=== PATIENT | male | born 1990 | race Caucasian/White ===

== ENCOUNTER 2019-04-06 15:35 | Emergency (ER) | payer OTHER ==
--- NOTE | 2019-04-06 15:51 | ED Physician Documentation ---
History of Present Illness - Stated complaint Stated Complaint: L FINGER LAC - Chief complaint Chief Complaint: Laceration - Additonal information Additional information: This is a 28-year-old male who presents after lacerating his left middle finger with a boxcar weigher. He states that he slipped and he cut his finger. The bleeding is controlled. He does not know when his last tetanus shot was. No numbness or weakness. Review of Systems Constitutional: denies: Fever Skin: reports: Laceration (s) PD PAST MEDICAL HISTORY - Past Medical History Past Medical History: No - Allergies Allergies/Adverse Reactions: Allergies Allergy/AdvReac Type Severity Reaction Status Date / Time No Known Drug Allergies Allergy Verified 04/06/19 15:45 - Living Situation Living Arrangement: reports: At home - Family History Family history: reports: Non contributory PD ED PE NORMAL - Vitals Vital signs reviewed: Yes - General General: Alert and oriented X 3, No acute distress - Cardiac Cardiac: No murmur - Extremities Extremities: Other (2 cm laceration to the left middle finger distal lateral aspect. There is no active bleeding. Extensive subcutaneous tissue, there is no foreign body. No tendon or bone visible. Sensation is intact light touch over the entire finger around the wound, and flexion/extension are normal) - Neuro Neuro: Alert and oriented X 3 - Psych Psych: Normal mood, Normal affect Results - Vitals Vitals: Vital Signs - 24 hr 04/06/19 04/06/19 15:43 17:07 Temperature 36.6 C 36.5 C Heart Rate 78 76 Respiratory 16 16 Rate Blood Pressure 126/75 122/75 O2 Saturation 98 99 Oxygen O2 Source Room air Procedures - Laceration (location) Finger Length in cm: 2 Wound type: Linear Neurovascular status: Sensory intact, Motor intact, Vascular intact Tendon involvement: No: Tendon Injury Anesthesia: Lidocaine 1% Skin layer closure: Nylon, Interrupted, Sutures - enter # (2) PD MEDICAL DECISION MAKING - ED course Complexity details: considered differential (Laceration, tendon injury, infection risk, tetanus risk) ED course: On exam patient has a clean-appearing laceration, this is irrigated copiously with normal saline. There is no tenderness of the bone, it is neurovascularly intact and motor function is preserved, No signs of tendon injury. His Tdap is out of date so this was updated today. The wound was closed with 2 sutures, when I was numbing the finger patient did developed nausea and vomited once in response to pain, shortly afterwards he felt completely fine with no symptoms. Laceration was repaired with sutures and skin glue, wound care and return precautions reviewed, patient was discharged home. Departure - Departure Disposition: 01 , Self Care Clinical Impression: Laceration Condition: Good Instructions: ED Laceration Ext Sutr Stap Tape Follow-Up: Your,PCP [Other] (In 7 to 10 days for suture removal and wound check) Comments: Keep a clean bandage over the wound, your stitches will need to be removed in 7 to 10 days. If you develop signs of infection such as redness streaking up the finger, significant swelling, or fever, return to the emergency department. Avoid trauma and use of the finger until the stitches are removed Discharge Date/Time: 04/06/19 17:07
[2019-04-06] MEDS ORDERED: LIDOCAINE 1% 2 ML VIAL SUBQ STA (16:21)
[2019-04-06] MEDS ORDERED: TETANUS/DIPHTHERIA/PERTUSSIS 0.5 ML SYRINGE IM ONE (16:21)
[2019-04-06 17:08] VITALS: BP 122/75
== END 2019-04-06 17:07 | disposition home or self-care (01) ==
LOC: ED 15:35
DX: S61.213A Laceration without foreign body of left middle finger without damage to nail, initial encounter (principal); W27.8XXA Contact with other nonpowered hand tool, initial encounter; Y99.0 Civilian activity done for income or pay; Z23 Encounter for immunization; R11.2 Nausea with vomiting, unspecified
CPT/HCPCS: 1040M; 12001; 90471; 90715; 99282; 99283

== ENCOUNTER 2020-07-03 07:00 | Outpatient (CLI) | payer OTHER | END 2020-07-03 23:59 | disposition home or self-care (01) | LOC: COV 07:00 | PROVIDERS: ATTEND Family Medicine | DX: R05 Cough (principal); R06.02 Shortness of breath; M79.10 Myalgia, unspecified site; R53.83 Other fatigue; R07.0 Pain in throat; R09.81 Nasal congestion; J34.89 Other specified disorders of nose and nasal sinuses; R11.2 Nausea with vomiting, unspecified; Z20.822 Contact with and (suspected) exposure to COVID-19 ==

== ENCOUNTER 2023-08-01 17:09 | Emergency (ER) | payer OTHER ==
--- NOTE | 2023-08-01 17:52 | ED Physician Documentation ---
History of Present Illness - Stated complaint Stated Complaint: CHEST PX - Chief complaint Chief Complaint: Cardiac - History obtained from History obtained from: Patient, Family - History of Present Illness Timing: Today Pain level max: 7 Pain level now: 3 - Additonal information Additional information: 33-year-old male presents to the emergency department complaining of epigastric pain today. Started about an hour prior to arrival. He states it increased to about 7 is now down to about a 3. Radiates to the back. Some nausea but no vomiting. No change with exertion. 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 Has not had similar symptoms previously. No fevers. No chills. No cardiac history. No diarrhea or constipation. No recent travel. No recent antibiotics. Review of Systems Constitutional: denies: Fever, Chills GI: denies: Vomiting, Diarrhea Skin: denies: Rash Musculoskeletal: denies: Neck pain, Back pain PD PAST MEDICAL HISTORY - Past Medical History Past Medical History: Yes Cardiovascular: None Respiratory: Asthma Neuro: None Endocrine/Autoimmune: None GI: None : None HEENT: None Psych: None Musculoskeletal: None Derm: None - Past Surgical History Past Surgical History: Yes HEENT: Tonsil/Adenoidectomy - Present Medications Home Medications: Ambulatory Orders Medication Instructions Recorded Confirmed No Known Home Medications 08/01/23 08/01/23 - Allergies Allergies/Adverse Reactions: Allergies Allergy/AdvReac Type Severity Reaction Status Date / Time No Known Drug Allergies Allergy Verified 08/01/23 17:13 - Social History Does the pt smoke?: No Smoking Status: Never smoker Does the pt drink ETOH?: No Does the pt have substance abuse?: No - Immunizations Immunizations are current?: Yes - POLST Patient has POLST: No PD ED PE NORMAL - Vitals Vital signs reviewed: Yes - General General: Alert and oriented X 3, No acute distress - HEENT HEENT: PERRL, Moist mucous membranes - Neck Neck: Supple, no meningeal sign - Cardiac Cardiac: RRR, Strong equal pulses - Respiratory Respiratory: No respiratory distress, Clear bilaterally - Abdomen Abdomen: Soft, Non distended, Other (Mild tenderness to palpation epigastric and right upper quadrant. Negative Anthony sign) - Back Back: No CVA TTP, No spinal TTP - Derm Derm: Warm and dry, No rash - Neuro Neuro: Alert and oriented X 3 - Psych Psych: Normal mood, Normal affect Results - Vitals Vitals: Vital Signs - 24 hr 08/01/23 08/01/23 08/01/23 17:13 17:15 19:11 Temperature 36.8 C Heart Rate 64 71 70 Respiratory 18 18 18 Rate Blood Pressure 133/90 H 119/74 119/77 O2 Saturation 98 98 98 08/01/23 19:58 Temperature Heart Rate 90 Respiratory 18 Rate Blood Pressure 110/97 H O2 Saturation 99 Oxygen O2 Source Room air - EKG (time done) 1721 EKG releavant findings:: EKG personally interpreted by author of this note. Relevant findings are: Rate: Rate (enter#) (66) Rhythm: NSR [place]: Normal Intervals: Normal [place] QRS: Normal Ischemia: ST elevation c/w repol - Labs Labs: Laboratory Tests 08/01/23 08/01/23 17:59 17:59 WBC 10.3 RBC 5.39 Hgb 15.8 Hct 47.1 MCV 87.4 MCH 29.3 MCHC 33.5 RDW 12.6 Plt Count 243 MPV 8.9 Neut # (Auto) 6.7 H Lymph # (Auto) 2.8 [place] # (Auto) 0.6 Eos # (Auto) 0.2 Baso # (Auto) 0.1 Absolute Nucleated RBC 0.00 Nucleated RBC % 0.0 Sodium 139 Potassium 3.9 Chloride 105 Carbon Dioxide 27 Anion Gap 7.0 BUN 23 H Creatinine 1.0 Estimated GFR (MDRD) 86 L Glucose 112 H Calcium 9.6 Total Bilirubin 0.6 AST 25 ALT 31 Alkaline Phosphatase 49 Troponin I High Sens 2.3 Total Protein 7.1 Albumin 4.5 Globulin 2.6 Albumin/Globulin Ratio 1.7 Lipase 35 - Rads (name of study) Right upper quadrant ultrasound Relevant Findings:: Final report received, See rad report PD Medical Decision Making - ED course Complexity details: reviewed results, re-evaluated patient, considered differential, d/w patient ED course: 33-year-old male presents to the emergency department with what appears to be biliary colic. His symptoms fully resolved in the emergency department. Abdomen is soft, nontender nondistended on serial exam. No significant lab abnormalities. Ultrasound does reveal gallstones and biliary sludge, no evidence of cholecystitis. Patient counseled regarding signs and symptoms for which I believe and urgent re-evaluation would be necessary. Patient with good understanding of and agreement to plan and is comfortable going home at this time This document was made in part using voice recognition software. While efforts are made to proofread this document, sound alike and grammatical errors may oc cur. Departure - Departure Disposition: 01 Home, Self Care Clinical Impression: Biliary colic, Fatty liver Condition: Good Instructions: ED Gallstone W Biliary Colic Follow-Up: Your,doctor in 1 week [Other] Surgical Care [Provider Group] Comments: Please follow-up with your doctor for further care. You do have gallstones and gallbladder sludge on your ultrasound today. It is likely that you passed small amounts of sludge after eating any meals, causing your pain. Recommend a low- fat diet. Please return for worsening pain, fevers, vomiting or other new or worrisome symptoms. PROCEDURE: Abdomen Limited INDICATIONS: RUQ abd pain TECHNIQUE: Real-time focused scanning was performed of the abdomen, with image documentation. COMPARISONS: None. FINDINGS: Liver: Increased liver echogenicity, commonly mild hepatic steatosis. Liver is mildly enlarged. Gallbladder: Multiple mobile stones measuring up to 1.2 cm. No gallbladder wall thickening or pericholecystic fluid. Biliary ducts: Intrahepatic bile ducts are non-dilated. Extrahepatic bile duct caliber measures 5 mm. Normal is 6-7 mm or less in diameter, or 10 mm or less post-cholecystectomy. Pancreas: Not well visualized due to overlying bowel gas. Right kidney: Normal in size and echotexture. Right kidney measures 12 cm long. No hydronephrosis or nephrolithiasis. No solid masses. No complex renal cystic lesions which require follow-up. IVC: Intrahepatic inferior vena cava is patent. Miscellaneous: No free abdominal fluid. IMPRESSION: 1.Cholelithiasis without evidence of acute cholecystitis. 2.Hepatic steatosis and mild hepatomegaly. Forms: PCP List Discharge Date/Time: 08/01/23 19:58
[2023-08-01 18:03] LABS: BASOPHILS # (AUTO) 0.1 10^3/uL (0.0-0.1); BASOPHILS % (AUTO) 0.5 %; EOSINOPHILS # (AUTO) 0.2 10^3/uL (0.0-0.7); EOSINOPHILS % (AUTO) 1.9 %; HCT - HEMATOCRIT 47.1 % (42.0-52.0); HGB - HEMOGLOBIN 15.8 g/dL (14.0-18.0); LYMPHOCYTES # (AUTO) 2.8 10^3/uL (1.5-3.5); MEAN CORPUSCULAR HEMOGLOBIN 29.3 pg (27.0-31.0); MEAN CORPUSCULAR HGB CONC 33.5 g/dL (32.0-36.0); MEAN CORPUSCULAR VOLUME 87.4 fL (80.0-94.0); MEAN PLATELET VOLUME 8.9 fL (7.4-11.4); MONOCYTES # (AUTO) 0.6 10^3/uL (0.0-1.0); MONOCYTES % (AUTO) 5.5 %; NEUTROPHILS # (AUTO) 6.7 10^3/uL (1.5-6.6); NEUTROPHILS % (AUTO) 64.6 %; PLT - PLATELET COUNT 243 10^3/uL (130-450); RED BLOOD COUNT 5.39 10^6/uL (4.70-6.10); RED CELL DISTRIBUTION WIDTH 12.6 % (12.0-15.0); WHITE BLOOD COUNT 10.3 x10^3/uL (4.8-10.8)
[2023-08-01] MEDS: SODIUM CHLORIDE 0.9% 1,000 ML IV STA (18:21)
[2023-08-01 18:23] LABS: ALBUMIN 4.5 g/dL (3.2-5.5); ALBUMIN/GLOBULIN RATIO 1.7 (1.0-2.2); BILIRUBIN,TOTAL 0.6 mg/dL (0.2-1.0); CALCIUM 9.6 mg/dL (8.5-10.3); POTASSIUM 3.9 mmol/L (3.5-4.5); TOTAL PROTEIN 7.1 g/dL (6.4-8.9)
[2023-08-01 18:26] LABS: TROPONIN I HIGH SENSITIVITY 2.3 ng/L (2.3-19.7)
--- NOTE | 2023-08-01 19:23 | XRAY Report ---
PROCEDURE: Chest 1V INDICATIONS: Chest Pain TECHNIQUE: One view of the chest was acquired. COMPARISON: None. FINDINGS: Surgical changes and devices: None. Lungs and pleura: No pleural effusions or pneumothorax. Lungs are clear. Mediastinum: Mediastinal contours appear normal. Heart size is normal. Bones and chest wall: No suspicious bony lesions. Overlying soft tissues appear unremarkable. IMPRESSION: No acute cardiopulmonary process. Reviewed by: Kurtis Maynard MD on 08/01/2023 7:22 PM PST Approved by: Kurtis Maynard MD on 08/01/2023 7:22 PM PST Station ID: [id number]
--- NOTE | 2023-08-01 19:41 | Ultrasound Report ---
PROCEDURE: Abdomen Limited INDICATIONS: RUQ abd pain TECHNIQUE: Real-time focused scanning was performed of the abdomen, with image documentation. COMPARISONS: None. FINDINGS: Liver: Increased liver echogenicity, commonly mild hepatic steatosis. Liver is mildly enlarged. Gallbladder: Multiple mobile stones measuring up to 1.2 cm. No gallbladder wall thickening or pericho lecystic fluid. Biliary ducts: Intrahepatic bile ducts are non-dilated. Extrahepatic bile duct caliber measures 5 m m. Normal is 6-7 mm or less in diameter, or 10 mm or less post-cholecystectomy. Pancreas: Not well visualized due to overlying bowel gas. Right kidney: Normal in size and echotexture. Right kidney measures 12 cm long. No hydronephrosis or nephrolithiasis. No solid masses. No complex renal cystic lesions which require follow-up. IVC: Intrahepatic inferior vena cava is patent. Miscellaneous: No free abdominal fluid. IMPRESSION: 1.Cholelithiasis without evidence of acute cholecystitis. 2.Hepatic steatosis and mild hepatomegaly. Reviewed by: Kurtis Maynard MD on 08/01/2023 7:40 PM PST Approved by: Kurtis Maynard MD on 08/01/2023 7:40 PM PST Station ID: [id number]
[2023-08-01 20:02] VITALS: BP 110/97; O2SAT 99
== END 2023-08-01 19:58 | disposition home or self-care (01) ==
LOC: ED 17:09
DX: K76.0 Fatty (change of) liver, not elsewhere classified (principal); K80.50 Calculus of bile duct without cholangitis or cholecystitis without obstruction
CPT/HCPCS: 36415; 80053; 83690; 84484; 85025; 93005; 99283; 99284